=== PATIENT | male | born 1990 | race Caucasian/White ===

== ENCOUNTER 2018-04-05 23:39 | Emergency (ER) | payer SELFPAY ==
[~2018-04-05] VITALS: Ht 170.2 cm; Wt 70.9 kg
[2018-04-05 23:40] VITALS: BP 119/62
== END 2018-04-06 01:20 | disposition left against medical advice (07) ==
LOC: EMS 23:39
DX: N50.811 Right testicular pain (principal); Z53.21 Procedure and treatment not carried out due to patient leaving prior to being seen by health care provider

== ENCOUNTER 2019-02-14 21:56 | Emergency (ER) | payer SELFPAY ==
[~2019-02-14] VITALS: Ht 172.7 cm; Wt 75.0 kg
[2019-02-15 00:27] VITALS: BP 116/58
[2019-02-15] MEDS ORDERED: ACETAMINOPHEN/CODEINE 300-30 MG TABLET PO ONE (00:30)
[2019-02-15] MEDS ORDERED: DiphenhydrAMINE HCL 25 MG CAPSULE PO ONE (00:30)
== END 2019-02-15 00:25 | disposition home or self-care (01) ==
LOC: EMS 21:57
DX: J02.9 Acute pharyngitis, unspecified (principal); F12.90 Cannabis use, unspecified, uncomplicated; F17.210 Nicotine dependence, cigarettes, uncomplicated
CPT/HCPCS: 87430; 99406